=== PATIENT | female | born 1945 | race Caucasian/White ===

== ENCOUNTER 2016-12-18 16:07 | Emergency (ER) | payer MEDICARE, OTHER ==
[2016-12-18 17:26] LABS: BASOPHIL 0.3 % (0-2); EOSINOPHIL 2.8 % (0-7); HGB 10.6 g/dl (12.5-16.0); LYMPHOCYTE 6.4 % (15-48); MCH 24.5 pg (25.0-31.0); MCHC 31.2 g/dL (32.0-36.0); MCV 78.7 fL (78.0-100.0); MONOCYTE 8.9 % (0-12); MPV 8.3 fL (6.0-9.5); NEUTROPHIL 81.6 % (41-80); PLT 413 K/uL (150-400); RBC 4.32 M/uL (4.20-5.40); RDW 15.1 % (11.5-14.0)
[2016-12-18 17:42] LABS: CREATININE 0.7 mg/dL (0.5-1.0)
== END 2016-12-18 18:24 | disposition home or self-care (01) ==
LOC: FER 16:07
PROVIDERS: Internal Medicine
DX: J20.9 Acute bronchitis, unspecified (principal); C34.90 Malignant neoplasm of unspecified part of unspecified bronchus or lung; J44.9 Chronic obstructive pulmonary disease, unspecified; Z87.891 Personal history of nicotine dependence; Z88.0 Allergy status to penicillin; Z88.5 Allergy status to narcotic agent; Z91.041 Radiographic dye allergy status
CPT/HCPCS: 36415; 71020; 80048; 85025

== ENCOUNTER 2017-04-01 23:58 | Day surgery (SDCO) | payer MEDICARE, OTHER ==
[~2017-04-01] VITALS: Ht 160 cm; Wt 45.4 kg
[2017-04-02 00:57] LABS: BASOPHIL 0.1 % (0-2); HCT 33.2 % (37.0-47.0); HGB 10.8 g/dl (12.5-16.0); LYMPHOCYTE 5.5 % (15-48); MCH 28.3 pg (25.0-31.0); MCHC 32.5 g/dL (32.0-36.0); MCV 87.1 fL (78.0-100.0); MONOCYTE 14.5 % (0-12); MPV 8.8 fL (6.0-9.5); NEUTROPHIL 78.9 % (41-80); PLT 381 K/uL (150-400); RBC 3.81 M/uL (4.20-5.40); RDW 14.3 % (11.5-14.0); WBC 8.2 K/uL (4.0-10.5)
[2017-04-02 01:01] LABS: BILIRUBIN 1+ mg/dL (NEGATIVE); BLOOD NEGATIVE Ery/uL (NEGATIVE); CLARITY CLEAR (CLEAR); COLOR YELLOW (YELLOW); GLUCOSE (U) NORMAL (NORMAL); KETONE (U) NEGATIVE (NEGATIVE); LEUKOCYTES NEGATIVE Leu/uL (NEGATIVE); NITRITE NEGATIVE (NEGATIVE); PROTEIN TRACE (LOW) mg/dL (NEGATIVE); SPECIFIC GRAVITY 1.025 (1.001-1.030)
[2017-04-02 01:37] LABS: BILIRUBIN - TOTAL 1.9 mg/dL (0.1-1.0); CREATININE 0.6 mg/dL (0.5-1.0); GLOBULIN (CALCULATION) 4.3 g/dL (2.2-4.2); LACTIC ACID 1.1 mmol/L (0.5-2.2); POTASSIUM 3.1 mmol/L (3.5-5.1); TOTAL PROTEIN 7.3 g/dL (6.4-8.3)
[2017-04-02 03:45] LABS: INR 1.34 (0.9-1.2); PROTHROMBIN TIME 15.3 SECONDS (11.4-13.2)
[2017-04-02 03:46] LABS: PTT 28.9 SECONDS (24.3-32.1)
[2017-04-02 06:56] LABS: HCT 32.3 % (37.0-47.0); HGB 10.4 g/dl (12.5-16.0); MCH 28.3 pg (25.0-31.0); MCHC 32.2 g/dL (32.0-36.0); MCV 87.8 fL (78.0-100.0); MPV 8.9 fL (6.0-9.5); RBC 3.68 M/uL (4.20-5.40); RDW 14.5 % (11.5-14.0); WBC 7.9 K/uL (4.0-10.5)
[2017-04-02 07:02] LABS: ALBUMIN 2.8 g/dL (3.4-4.8); BILIRUBIN - TOTAL 1.8 mg/dL (0.1-1.0); CREATININE 0.6 mg/dL (0.5-1.0); GLOBULIN (CALCULATION) 4.2 g/dL (2.2-4.2); MAGNESIUM 1.97 mg/dL (1.40-2.10); POTASSIUM 3.4 mmol/L (3.5-5.1)
[2017-04-02 07:11] LABS: FT4 (FREE T4) 1.9 ng/dL (0.93-1.70); TSH (THYROID STIM HORMONE) 0.34 uIU/mL (0.270-4.200)
[2017-04-02 08:30] LABS: RETICULOCYTE COUNT 0.9 % (1.0-2.0)
[2017-04-02 08:53] LABS: FT4 (FREE T4) 1.88 ng/dL (0.93-1.70); TSH (THYROID STIM HORMONE) 0.342 uIU/mL (0.270-4.200)
[2017-04-02 09:01] LABS: D-DIMER 0.74 ug/mLFEU (0.00-0.41)
[2017-04-02 09:04] LABS: FOLIC ACID (SERUM) 18.3 ng/mL (5.6-45.8)
[2017-04-02] MEDS ORDERED: SINGULAIR10 MG PO (16:10)
[2017-04-02] MEDS ORDERED: MAG-OXIDE 400M400 MG PO (16:10)
[2017-04-02] MEDS ORDERED: SYNTHROID50 MCG PO (16:11)
[2017-04-02] MEDS ORDERED: SYSTANE 0.3-0.440 ML OU (16:12)
[2017-04-02] MEDS ORDERED: VENTOLIN HFA IN18 GM INH (16:12)
[2017-04-02] MEDS ORDERED: TARCEVA150 MG PO (16:12)
[2017-04-02] MEDS ORDERED: PREDNISONE 10MG10 MG PO (16:12)
[2017-04-02] MEDS ORDERED: VIBRAMYCIN100 MG PO (16:12)
[2017-04-02] MEDS ORDERED: ZANTAC150 MG PO (16:13)
[2017-04-02] MEDS ORDERED: NORVASC5 MG PO (16:13)
[2017-04-02] MEDS ORDERED: METFORMIN HCL500 M2 PO (16:13)
[2017-04-02] MEDS ORDERED: ALL DAY ALLERGY10 MG PO (16:13)
== END 2017-04-02 17:30 | disposition home or self-care (01) ==
LOC: FER 23:58 → FTCU 04-02 03:05
PROVIDERS: Emergency Medicine; Internal Medicine Hematology & Oncology; ADMIT Internal Medicine
DX: I95.1 Orthostatic hypotension (principal); E83.52 Hypercalcemia; J44.9 Chronic obstructive pulmonary disease, unspecified; K21.9 Gastro-esophageal reflux disease without esophagitis; C34.12 Malignant neoplasm of upper lobe, left bronchus or lung; E03.9 Hypothyroidism, unspecified; I10 Essential (primary) hypertension; E11.9 Type 2 diabetes mellitus without complications; J30.2 Other seasonal allergic rhinitis; Z92.21 Personal history of antineoplastic chemotherapy; Z92.3 Personal history of irradiation; Z87.891 Personal history of nicotine dependence; Z79.2 Long term (current) use of antibiotics; Z79.52 Long term (current) use of systemic steroids; Z79.84 Long term (current) use of oral hypoglycemic drugs; Z79.899 Other long term (current) drug therapy; Z98.890 Other specified postprocedural states
CPT/HCPCS: 36415; 71020; 78579; 78580; 80053; 81003; 82607; 82728; 82746; 83540; 83550; 83605; 83615; 83735; 84439; 84443; 84481; 84484; 85025; 85044; 85379; 85610; 85730; 87040; 87076; 87088; 87186; 93005; 94010; 94640; 94760; 97163; 97167; 97530; 97530-GP; A9539; A9540; G0378; J2930; J3489